=== PATIENT | male | born 1950 | race Caucasian/White ===

== ENCOUNTER 2020-12-29 09:59 | Outpatient (CLI) | payer MEDICARE, OTHER, SELFPAY ==
--- NOTE | ~2020-12-29 | XR_ITS ---
EXAMINATION: XR chest 2V DATE: 12/29/2020 10:32 INDICATION: Chronic shortness of breath. Chronic obstructive pulmonary disease. TECHNIQUE: Frontal and lateral views of the chest were obtained on 4 radiographs. COMPARISON: None. FINDINGS: The lungs are hyperexpanded with lucencies, interstitial opacities, and architectural disto rtion, consistent with emphysema. No pleural effusion or pneumothorax. The heart size is normal. IMPRESSION: 1. Emphysema. Reviewed, dictated and finalized at location A. IMPRESSION: 1. Emphysema.
--- NOTE | 2020-12-29 10:12 | ECHO_ITS ---
Patient Info Name: Lui Cook Age: 70 years : 1950 Gender: Male Ht: 73 in Wt: 246 lbs BSA: 2.43 m2 HR: 101 bpm BP: 120 / 81 mmHg Heart Rhythm: Sinus Rhythm Technical Quality: Poor Exam Date: 12/29/2020 9:26 AM Exam Location: [facility] Patient Status: Outpatient Admit Date: 12/29/2020 Staff Ordering Physician: Norma, Canelo CORDOVA [employer] Specialist: Airam Roblero RDCS Attending Provider: Norma, Canelo CORDOVA Exam Type: CA echo dop color flow w con Study Info Indications R06.02 - Shortness of breath Complete two-dimensional, color flow and Doppler transthoracic echocardiogram is performed with contrast to opacify the left ventricle and to improve the deliniation of the left ventricle endocardial borders. Strain analysis performed. Contrast/Agitated Saline Contrast/Ag. Saline: Definity Amount: 8.00 ml New IV Access: Right Site Condition: No extravasation, Site dressing applied and IV removed Reason for Poor Study: poor echocardiographic windows History/Risk Factors Hypertension: Yes Dyslipidemia: No Congenital Heart Disease (CHD): No Diabetic Therapy: Insulin Peripheral Arterial Disease (PAD): No Myocardial Infarction (CO): No Chronic Lung Disease: No Obesity: Yes Renal Disease: Yes Congestive Heart Failure (CHF): No Cardiomyopathy/LV Systolic Dysfunction: No Diabetes Mellitus: Type II COPD: On Meds Cerebrovascular Disease: No Deep Vein Thrombosis (DVT): None Dialysis: None Frailty Scale (CSHA): 6: Moderately Frail Cardiac Arrest: No Summary 1. Left ventricular chamber dimension is normal. 2. Definity contrast administered improved wall motion interpretation. 3. Left ventricular systolic function is normal, estimated at 65-70%. 4. The left ventricular diastolic function is grade I diastolic dysfunction. 5. E/e' 9 is minimally elevated. 6. Global longitudinal strain is abnormal at -13.7%. 7. The aortic root size at the sinus of Valsalva is borderline dilated at 4.2 cm. Recommendations * Continue medical therapy for diabetes. Left Ventricle E/e' 9 is minimally elevated. Global longitudinal strain is abnormal at -13.7%. Definity contrast administered improved wall motion interpretation. Left ventricular chamber dimension is normal. Left ventricular systolic function is normal, estimated at 65-70%. The left ventricular diastolic function is grade I diastolic dysfunction. Right Ventricle Right ventricular chamber dimension is normal. Right ventricular systolic function is normal. Left Atria Left atrial chamber dimension is normal. Right Atria Right atrial chamber dimension is normal. Aortic Valve The aortic valve is trileaflet. There is no aortic valve stenosis. There is no aortic valve regurgitation. Pulmonic Valve There is no pulmonic regurgitation. Mitral Valve There is no mitral valve stenosis. There is no mitral valve regurgitation. Tricuspid Valve There is no tricuspid valve regurgitation. Pericardium/Pleural There is no pericardial effusion. Inferior Vena Cava Normal inferior vena cava with >50% collapse upon inspiration consistent with normal right atrial pressure, 5 mmHg. Aorta The aortic root size at the sinus of Valsalva is borderline dilated at 4.2 cm. Left Ventricular Outflow Tract
== END 2020-12-29 10:00 | disposition home or self-care (01) ==
LOC: CHSIMG 10:04
PROVIDERS: PCP Family Medicine; Visit Provider Family Medicine
DX: R06.02 Shortness of breath (principal); J43.9 Emphysema, unspecified
CPT/HCPCS: 71046; C8929

== ENCOUNTER 2024-06-11 11:02 | Outpatient (NON) | payer MEDICARE, SELFPAY ==
[2024-06-11 11:19] LABS: Basophils Absolute Auto 0.04 K/mm3 (0.00-0.10); Basophils Percent Auto 0.6 % (0.0-1.0); Eosinophils Absolute Auto 0.37 K/mm3 (0.02-0.50); Eosinophils Percent Auto 5.8 % (1.0-6.0); Hematocrit 32.3 % (37.0-46.0); Hemoglobin 10.9 g/dL (12.4-15.3); Immature Granulocyte Absolute 0.06 K/mm3 (0.00-0.00); Immature Granulocyte Percent A 0.9 % (0.0-0.0); Lymphocytes Absolute Auto 1.36 K/mm3 (1.10-4.50); Lymphocytes Percent Auto 21.3 % (18.0-42.0); Mean Corpuscular HGB Conc 33.7 g/dL (32-36); Mean Corpuscular Hemoglobin 30.4 pg (27.0-31.0); Mean Corpuscular Volume 90.2 fL (78.0-102.0); Monocytes Percent Auto 9.4 % (2.0-11.0); Neutrophils Absolute Auto 3.96 K/mm3 (1.70-7.20); Platelet Count Result 174 K/mm3 (150-420); Red Blood Count 3.58 M/mm3 (4.70-6.10); Red Cell Distribution Width 13.2 % (11.6-14.4); White Blood Count 6.4 K/mm3 (4.8-10.8)
[2024-06-11 11:50] LABS: Alanine Aminotransferase 37 U/L (16-63); Albumin Level 3.5 g/dL (3.4-5.0); Alkaline Phosphatase 133 U/L (46-116); Anion Gap 9 mmol/L (4-12); Aspartate Amino Transferase 28 U/L (15-37); Bilirubin,Total 0.4 mg/dL (0.00-1.00); Blood Urea Nitrogen 25 mg/dL (7-18); Calcium 8.8 mg/dL (8.5-10.1); Carbon Dioxide 29 mmol/L (21-32); Chloride 101 mmol/L (98-108); Estimated Glomerular Filt Rate 36; Glucose 122 mg/dL (70-99); NT Pro B Type Natriuretic Pept 131 pg/mL (0-450); Osmolality Calculated 293 mOsm/kg (285-295); Potassium 4.3 mmol/L (3.5-5.1); Sodium 139 mmol/L (136-145); Total Protein 6.4 g/dL (6.4-8.2)
== END 2024-06-11 11:03 | disposition home or self-care (01) ==
LOC: CHSLAB 11:07
PROVIDERS: PCP Family Medicine; Visit Provider Family Medicine
DX: E11.9 Type 2 diabetes mellitus without complications (principal); I10 Essential (primary) hypertension; R06.02 Shortness of breath
CPT/HCPCS: 80053; 83880; 85025